=== PATIENT | female | born 1990 | race African-American/Black ===

== ENCOUNTER 2017-04-16 05:07 | Inpatient (IN) | payer OTHER ==
[~2017-04-16] VITALS: Ht 157.5 cm; Wt 76.7 kg
[~2017-04-16 05:07] MED LIST: BENTYL 10 MG CA10 MG PO; BENTYL20 MG PO; MOTRIN 800MG T800 MG PO; PEPCID20 MG PO; PERCOCET 325 MG1 TA2 PO; REGLAN10 MG PO; ZOFRAN ODT4 MG PO; ZOFRAN4 M1 PO
[2017-04-16 05:44] LABS: ABSOLUTE BASOPHIL COUNT 0 /CUMM (0.0-0.2); ABSOLUTE EOSINOPHIL COUNT 0 /CUMM (0.0-0.7); ABSOLUTE GRANULOCYTE CT 7.8 /CUMM (1.4-6.5); ABSOLUTE LYMPH COUNT 2.8 /CUMM (1.2-3.4); ABSOLUTE MONOCYTE COUNT 1.1 /CUMM (0.10-0.60); BASOPHIL % 0.3 % (0.0-2.0); EOSINOPHIL % 0.4 % (0-5); GRANULOCYTE % 66.2 % (42.2-75.2); MEAN CORPUSCULAR HGB 26.7 PG (27.0-31.0); MEAN CORPUSCULAR HGB CONC 32.6 G/DL (33.0-37.0); PLATELET COUNT 270 /CUMM (130-400); RBC DISTRIBUTION WIDTH 15.1 % (11.5-14.5); WHITE BLOOD CELL COUNT 11.7 /CUMM (4.8-10.8)
--- NOTE | 2017-04-16 07:44 | History & Physical ---
General Information and HPI MD Statement: I have seen and personally examined EMMANUEL JAIN and documented this H&P. The patient is a 27 year old female at 39] weeks and [6] days gestation who presented with a chief complaint of [active labor]. History of Present Illness: 27-year-old 2 para 1 LMP 07/11/2016 EDC 04/17/2017 at 39 weeks and 6 days who presents to labor and delivery in active labor. care is complete and remarkable for positive group B strep colonization. History is significant for 1. 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 EENTM: Denies: no symptoms, see HPI, blurred vision, double vision, visual changes, eye pain, eye drainage, eye tearing, icterus, ear discharge, ear pain, ear redness, hearing changes, nasal congestion, epistaxis, nasal pain, throat pain, throat swelling, mouth pain, tooth pain. Cardiovascular: Denies: no symptoms, see HPI, chest pain, edema, orthopena, palpitations, peripheral edema, syncope. Respiratory: Denies: no symptoms, see HPI, cough, hemoptysis, orthopnea, short of breath, sputum production, stridor, wheezing. GI: Denies: no symptoms, see HPI, abdominal pain, bloating, constipation, diarrhea, distention, bowel incontinence, melena, nausea, bloody stool, changes in stool, vomiting, steatorrhea. Genitourinary: Reports: see HPI. Musculoskeletal: Denies: no symptoms, see HPI, back pain, gout, joint pain, joint swelling, muscle pain, muscle stiffness, neck pain. Skin: Denies: no symptoms, see HPI, cysts, change in skin color, change in hair/nails, dryness, erythema, jaundice, lesions, lymphangitis, lumps, moles, rash. Neurological/Psychological: Denies: no symptoms, see HPI, anxiety, ataxia, cognitive dysfunction, confusion, depressed, dementia, emotional problems, headache, numbness, paresthesia, pre- existing deficit, petit mal seizures, tingling, tremors, tonic-clonic seizures, unable to move lower ext, unable to move upper ext, weakness, other. Hematologic/Endocrine: Denies: no symptoms, see HPI, bruising, bleeding, polyuria, polydipsia, other. Immunologic/Allergic: Denies: no symptoms, see HPI, splenectomy, HIV/AIDS, lymphadenopathy, other. All Other Systems: Reviewed and Negative Exam & Diagnostic Data Last 24 Hrs of Vital Signs/I&O Intake & Output 04/16 0800 05/16 0000 15 1600 Intake Total Output Total Balance Patient 169 lb Weight Obstetric Exam Wgt Gained During : 20 pounds Pelvimetry: Gynecoid Dilation (cm): 8 Effacement (%): 100 Station: 0 Membranes: intact Fluid: unknown Fundal Height (cm): 40 Multiple Gestation? No Contractions: Every 2 minutes Infant #1 - FHR Baseline: 120 Category: 1 Estimated Weight: 6 lbs. 14 oz. Presentation: Phallic Patient for Induction? No Labs Blood Type & Rh: B+ Antibody Screen: Negative Hct/Hgb & Platelets #1: 36, 12, 260 Hct/Hgb & Platelets #2: Early 3, 11, 322 Rubella: Immune VDRL #1: Nonreactive VDRL #2: Nonreactive HbsAg: Negative HIV #1: Negative HIV #2 Negative 1 Hr P Group B Strep: Positive Initial Ultrasound: Normal Anatomy Ultrasound: Normal Ultrasound for EFW: 6 pounds Genetic Testing: Negative Assessment/Plan Assessment/Plan: Active labor Expectant management IV penicillin As Ranked By This Provider Problem List: 1. Core Measures/Miscellaneous Venous Thromboembolism VTE Risk Factors: / VTE Contraindications: No Contraindications VTE Diagnosis: No Beta Jadiel Is Beta Jadiel a Home Med? No Antibiotics Is Patient on Antibiotics? Yes
--- NOTE | 2017-04-16 07:45 | Labor & Delivery Summary ---
See Addendum Delivery Summary Vaginal Delivery: Vaginal: vertex Episiotomy/Lacerations: Episiotomy/Lacerations: lac Type: Midline Repair: 3-0 interrupted Anesthesia: Local Placenta: Placenta: spontanteous, normal, 3 vessel Anesthesia: none Baby's Weight: 614 Apgars - 1 Min: 9 Apgars - 5 Min: 9
[2017-04-17 08:43] LABS: ABSOLUTE BASOPHIL COUNT 0 /CUMM (0.0-0.2); ABSOLUTE EOSINOPHIL COUNT 0 /CUMM (0.0-0.7); ABSOLUTE GRANULOCYTE CT 6.9 /CUMM (1.4-6.5); ABSOLUTE LYMPH COUNT 2.6 /CUMM (1.2-3.4); ABSOLUTE MONOCYTE COUNT 0.9 /CUMM (0.10-0.60); BASOPHIL % 0.4 % (0.0-2.0); EOSINOPHIL % 0.3 % (0-5); GRANULOCYTE % 66.1 % (42.2-75.2); MEAN CORPUSCULAR HGB 26.8 PG (27.0-31.0); MEAN CORPUSCULAR HGB CONC 33.1 G/DL (33.0-37.0); MEAN PLATELET VOLUME 9.3 FL (7.4-10.4); PLATELET COUNT 261 /CUMM (130-400); RBC DISTRIBUTION WIDTH 15.3 % (11.5-14.5); WHITE BLOOD CELL COUNT 10.5 /CUMM (4.8-10.8)
[2017-04-17 08:47] LABS: HEMATOCRIT 30.8 % (37-47)
[2017-04-17] MEDS ORDERED: IBUPROFEN800 M1 PO (10:09)
[2017-04-17] MEDS ORDERED: IBUPROFEN100 MG/52 PO (10:26)
== END 2017-04-17 12:40 | DRG 560 ==
LOC: GNO 05:07
PROVIDERS: ADMIT Obstetrics & Gynecology
PROC: 10E0XZZ Delivery of Products of Conception, External Approach (ICD-10-PCS; principal; 2017-04-16)
PROC: 0KQM0ZZ Repair Perineum Muscle, Open Approach (ICD-10-PCS; principal; 2017-04-16)
DX: O70.1 Second degree perineal laceration during delivery (principal); Z3A.39 39 weeks gestation of pregnancy; Z37.0 Single live birth; O99.824 Streptococcus B carrier state complicating childbirth
CPT/HCPCS: GNOS; 36415; 81001; 97116-GO; 97161-GP; 97530-GO; J1885; J2310; J7120